=== PATIENT | male | born 1945 | race Caucasian/White ===

== ENCOUNTER → 2018-02-22 | Outpatient (CLI) | payer MEDICARE ==
[~2018-02-22] MED LIST: ALBU90OI61 INH; Aspir 8181 MG PO; B-12500 MCG PO; CALCA500CH PO; CLOBETTC TOP; CLOP75 PO; CYCL10 PO; Cialis5 MG; DOXA4 PO; METO50ER PO; NAPR500 PO; NAPR550 PO; OMEP20ER; OMEP20ER PO; PANT40 PO; Roxicodone5 MG; SIMV80 PO
== END ==
LOC: LAB 16:07 → LAB SHORT 16:07
PROVIDERS: Internal Medicine
DX: R97.20 Elevated prostate specific antigen [PSA] (principal)
CPT/HCPCS: 36415; 84153

== ENCOUNTER 2024-06-04 11:31 | Emergency (ER) | payer MEDICARE ==
[~2024-06-04] VITALS: Ht 180.3 cm; Wt 113.4 kg
[2024-06-04] MEDS ORDERED: FentaNYL Citrate 50 MCG/ML 2 ML Injection IV ONE (11:50)
[2024-06-04] MEDS ORDERED: Ondansetron HCl 2 MG / ML 2ML Vial IV ONE (11:50)
[2024-06-04 12:06] LABS: BASOPHILS ABSOLUTE AUTO 0.06 K/mm3 (0.00-0.23); BASOPHILS PERCENT AUTO 1 % (0-2); EOSINOPHILS ABSOLUTE AUTO 0.12 K/mm3 (0.00-0.68); EOSINOPHILS PERCENT AUTO 2 % (0-6); Hematocrit 41.3 % (37.0-53.0); Hemoglobin 13.2 g/dL (13.5-17.5); IMMATURE GRAN ABSOLUTE AUTO 0.02 K/mm3 (0.00-0.10); IMMATURE GRAN PERCENT AUTO 0 % (0-1); LYMPHOCYTES ABSOLUTE AUTO 1.21 K/mm3 (0.84-5.20); LYMPHOCYTES PERCENT AUTO 21 % (21-46); MONOCYTES ABSOLUTE AUTO 0.72 K/mm3 (0.16-1.47); MONOCYTES PERCENT AUTO 12 % (4-13); Mean Corpuscular HGB 28.9 pg (26.0-34.0); Mean Corpuscular Volume 91 fL (80-100); Mean Platelet Volume 10.7 fL (9.1-12.4); NEUTROPHILS ABSOLUTE AUTO 3.67 K/mm3 (1.96-9.15); NEUTROPHILS PERCENT AUTO 63 % (41-73); Platelet Count 141 K/mm3 (150-400); RDW Coefficient Variation 13.5 % (11.7-14.2); RDW Standard Deviation 45.2 fL (35.1-46.3); Red Blood Cell Count 4.56 M/mm3 (4.30-5.90)
[2024-06-04 12:23] LABS: Albumin, Blood 3.5 g/dL (3.4-5.0); Albumin/Globulin Ratio 1.1 (0.8-1.8); Bun/Creatinine Ratio 14.3 (12.0-20.0); Calcium, Blood 9.3 mg/dL (8.5-10.1); Creatinine, Blood 1.75 mg/dL (0.60-1.20); Globulin, Blood 3.2 g/dL (2.2-4.0); Potassium, Blood 4.7 mmol/L (3.5-5.5); Total Protein, Blood 6.7 g/dL (6.4-8.2)
[2024-06-04 13:00] VITALS: BP 159/89
== END 2024-06-04 13:40 | disposition home or self-care (01) ==
LOC: ER 11:31
PROVIDERS: Emergency Medicine
DX: I71.43 Infrarenal abdominal aortic aneurysm, without rupture (principal); I70.8 Atherosclerosis of other arteries; K21.9 Gastro-esophageal reflux disease without esophagitis; E78.5 Hyperlipidemia, unspecified; Z87.891 Personal history of nicotine dependence; Z79.82 Long term (current) use of aspirin; Z79.02 Long term (current) use of antithrombotics/antiplatelets; Z79.899 Other long term (current) drug therapy; Z88.8 Allergy status to other drugs, medicaments and biological substances
CPT/HCPCS: 74177; 80053; 83690; 85025; 99285-25; J2405; J3010; Q9967

== ENCOUNTER → 2025-09-02 | Outpatient (CLI) | payer MEDICARE ==
[2025-09-02 20:25] LABS: Microalbumin, Random Urine 36.700 mg/L (0.000-20.000)
[2025-09-02 20:37] LABS: Creatinine, Urine Random >400.00 mg/dL (27.00-270.00); Microalb/Creat Ratio UR, Rand Unable to Calculate mg/g (0.000-30.000)
== END ==
LOC: LAB SHORT 15:28 → LAB 15:28
PROVIDERS: Nurse Practitioner Family
DX: E11.21 Type 2 diabetes mellitus with diabetic nephropathy (principal); E11.311 Type 2 diabetes mellitus with unspecified diabetic retinopathy with macular edema; E11.59 Type 2 diabetes mellitus with other circulatory complications
CPT/HCPCS: 82043; 82570

== ENCOUNTER → 2025-10-22 | Outpatient (CLI) | payer MEDICARE | END | disposition home or self-care (01) | LOC: LAB SHORT 13:41 → LAB 13:41 | DX: E11.311 Type 2 diabetes mellitus with unspecified diabetic retinopathy with macular edema (principal); E11.59 Type 2 diabetes mellitus with other circulatory complications; E11.21 Type 2 diabetes mellitus with diabetic nephropathy | CPT/HCPCS: 82043 ==